=== PATIENT | male | born 1945 | race Caucasian/White ===

== ENCOUNTER 2017-08-30 15:06 | Inpatient (IN) ==
--- NOTE | 2017-08-30 15:44 | Emergency Department Note ---
Disposition Clinical Impression: PAD (peripheral artery disease) DVT (deep venous thrombosis) Qualifiers: DVT location: lower extremity Affected thrombotic vein of extremity: femoral Chronicity: acute Laterality: left Qualified Code(s): I82.412 - Acute embolism and thrombosis of left femoral vein Disposition: Admitted As Inpatient Condition: Good Time of Disposition: 00:55 General Adult HPI - General Chief complaint: ED General Medical Stated complaint: DVT Time Seen by Provider: 08/30/17 15:17 Source: patient Limitations: no limitations Nursing Notes Reviewed: Yes Vital Signs Reviewed: Yes - History of Present Illness HPI Narrative: Mr. Cuello, 72-year-old male, reasons from the [place] by EMS for evaluation of lack of left posterior tibial and dorsalis pedis pulses and [facility]. Patient's daughter is a PA at urgent care and noted that her father 's left ankle and foot were more swollen versus right and recommended he seek evaluation at the [facility]. He has no pain in his lower extremities and his only complaint is the visible difference with slight swelling in the left ankle and foot versus right. He otherwise has had no trauma, no breaks in skin, no claudication, no history of coagulopathy, no cancer history, no recent surgeries. Patient takes no daily medications and has a prior [id number] history of smoking. Pain Scale: 2 - Related Data Home Medications Medication Instructions Recorded Confirmed No Known Home Drugs 08/30/17 08/30/17 Allergies Allergy/AdvReac Type Severity Reaction Status Date / Time No Known Allergies Allergy Verified 08/30/17 15:23 All systems ED: reviewed and negative except as stated. Review of Systems: As Per HPI Past Medical History - Past Medical History Medical history: Reports: other Psychiatric history: Reports: anxiety, depression, PTSD - Social History Smoking Status: Current every day smoker Smokeless Tobacco Status: No Alcohol use: Reports: heavy Drug use: Reports: none Physical Exam Vital Signs Reviewed General: Patient is alert, oriented, and in no acute distress. Head: atraumatic, normocephalic Eye: normal appearance, PERRL, EOMI, no scleral icterus, no conjunctival injection ENT: mucous membranes moist, normal external ear exam Neck: normal inspection, trachea midline, full ROM Chest: normal inspection, symmetric chest rise Respiratory: Good respiratory effort. Bilateral breath sounds are clear without wheezing, crackles, or rhonchi. Cardiovascular: Regular rate and rhythm. No clicks, rubs, gallops, or murmors. Normal heart sounds. Left posterior tibial and her cells pedis pulses nonpalpable, overlying skin cool and mottled, no cyanosis. Prolonged capillary refill in the bilateral toes of 5-6 seconds. Abdomen: Bowel sounds present normoactive x-4 quadrants. Abdomen is soft, nondistended, and nontender. No guarding or rebound. No organomegaly noted. Musculoskeletal: Spontaneously moving all extremities. Lower extremity strength 5/5 and equal. Skin: dry, intact. Neuro: Alert and oriented x4. Sensation light touch intact in lower extremity is bilaterally Psych: Patient's affect is appropriate for situation. - General Limitations: no limitations General appearance: alert Course Course Narrative: [facility] impression: "There is evidence of acute appearing deep venous thrombosis in the left lower extremity involving the proximal, mid, and distal femoral vein, popliteal vein, and posterior tibial veins." Preliminary arterial duplex: Arterial Duplex; Left Arterial image noted flow distally. Flow did appear mildly diminished and some areas of plaque were noted. NATALIE unable to be performed due to presence of venous thrombus, a contraindication for an NATALIE. I discussed the above in detail with the patient. We discussed the treatment strategy of his DVT being an anticoagulant. We discussed risk and benefits. He is agreeable to beginning IV heparin as a bridge to oral therapy with which she may be discharged home. He is agreeable to admission for continued evaluation and management. He has no additional questions or concerns this time. I discussed the patient with the admitting hospitalist, Dr. Hays, who agrees to accept the patient for continued evaluation and management. Vital Signs Temperature 97.8 F 08/30/17 15:08 Pulse Rate 101 08/30/17 15:08 Respiratory Rate 18 08/30/17 15:08 Blood Pressure 159/76 08/30/17 15:08 O2 Sat by Pulse Oximetry 98 08/30/17 15:08 Temperature 98.3 F 08/30/17 23:26 Pulse Rate 62 08/30/17 23:26 Respiratory Rate 15 08/30/17 23:26 Blood Pressure 133/73 08/30/17 23:26 O2 Sat by Pulse Oximetry 94 08/30/17 23:26 Oxygen Delivery Oxygen Delivery Room Air Medical Decision Making - Lab Data Result diagrams: 08/30/17 18:04 08/30/17 18:04 Lab Results 08/30/17 08/30/17 08/30/17 Range/Units 18:04 18:04 18:04 WBC 5.0 TNP (4.3-11.1) K/mcL RBC 4.92 TNP (4.19-5.50) M/mcL Hgb 15.5 TNP (12.9-16.9) g/dL Hct 46.1 TNP (37.5-50.1) % MCV 93.7 TNP (83.0-100.0) fL MCH 31.5 TNP (28.0-33.3) pg MCHC 33.6 TNP (31.6-35.5) g/dL RDW 12.7 TNP (11.5-14.5) % Plt Count 170 TNP (140-400) K/mcL MPV 10.5 TNP (9.4-12.4) fL Immature Gran % 0.2 (0-4) % Seg Neutrophils % 40.6 % Lymphocytes % 37.4 % Monocytes % 14.8 % Eosinophils % 6.0 % Basophils % 1.0 % Neutrophils # 2.0 (1.6-8.9) K/mcL Lymphocytes # 1.9 (0.6-4.6) K/mcL Monocytes # 0.7 (0.0-1.3) K/mcL Eosinophils # 0.3 (0.0-0.6) K/mcL Basophils # 0.1 (0.0-0.2) K/mcL PT (9.4-12.1) Seconds INR APTT (26.0-36.0) Seconds Sodium 140 (136-145) mEq/L Potassium 4.0 (3.5-5.1) mEq/L Chloride 105 (98-107) mEq/L Carbon Dioxide 28 (23-29) mEq/L BUN 9 (8-23) mg/dL Creatinine 0.83 (0.70-1.30) mg/dL Est GFR ( Amer) > 60 (> 60) Est GFR (Non-Af Amer) > 60 (> 60) BUN/Creatinine Ratio 11 (6-26) Glucose 89 (70-105) mg/dL Calculated Osmolality 288 (280-300) Calcium 9.3 (8.6-10.3) mg/dL 08/30/17 Range/Units 18:04 WBC (4.3-11.1) K/mcL RBC (4.19-5.50) M/mcL Hgb (12.9-16.9) g/dL Hct (37.5-50.1) % MCV (83.0-100.0) fL MCH (28.0-33.3) pg MCHC (31.6-35.5) g/dL RDW (11.5-14.5) % Plt Count (140-400) K/mcL MPV (9.4-12.4) fL Immature Gran % (0-4) % Seg Neutrophils % % Lymphocytes % % Monocytes % % Eosinophils % % Basophils % % Neutrophils # (1.6-8.9) K/mcL Lymphocytes # (0.6-4.6) K/mcL Monocytes # (0.0-1.3) K/mcL Eosinophils # (0.0-0.6) K/mcL Basophils # (0.0-0.2) K/mcL PT 12.1 (9.4-12.1) Seconds INR 1.1 APTT 26.6 (26.0-36.0) Seconds Sodium (136-145) mEq/L Potassium (3.5-5.1) mEq/L Chloride (98-107) mEq/L Carbon Dioxide (23-29) mEq/L BUN (8-23) mg/dL Creatinine (0.70-1.30) mg/dL Est GFR ( Amer) (> 60) Est GFR (Non-Af Amer) (> 60) BUN/Creatinine Ratio (6-26) Glucose (70-105) mg/dL Calculated Osmolality (280-300) Calcium (8.6-10.3) mg/dL Attestation Statement - Attestation Attestation: I examined this patient and my medical decision-making was reviewed with the Resident Physician. I agree with the documented findings, disposition and treatment plan as described except to the extent set forth below. DVt. Will admit after initiation of heparin. Patient will be admitted due to, getting factors of decrease arterial flow due to suspected compressive forces from underlying DVT.
[2017-08-30] MEDS ORDERED: Isovue-370 500 ML INFUS..BTL IV ONE (17:47)
[2017-08-30] MEDS ORDERED: *HR* Heparin 5,000 UNIT/ML VIAL IVP PRN ×2 (17:48)
[2017-08-30] MEDS ORDERED: *HR* Heparin 5,000 UNIT/ML VIAL IVP ONE (17:48)
[2017-08-30 18:23] LABS: Basophils # 0.1 K/mcL (0.0-0.2); Eosinophils # 0.3 K/mcL (0.0-0.6); Hematocrit 46.1 % (37.5-50.1); Hemoglobin 15.5 g/dL (12.9-16.9); Immature Granulocytes % 0.2 % (0-4); Lymphocytes # 1.9 K/mcL (0.6-4.6); Lymphocytes % 37.4 %; Mean Corpuscular HGB Conc 33.6 g/dL (31.6-35.5); Mean Corpuscular Hemoglobin 31.5 pg (28.0-33.3); Mean Corpuscular Volume 93.7 fL (83.0-100.0); Mean Platelet Volume 10.5 fL (9.4-12.4); Monocytes # 0.7 K/mcL (0.0-1.3); Monocytes % 14.8 %; Platelet Count 170 K/mcL (140-400); Red Blood Count 4.92 M/mcL (4.19-5.50); Red Cell Distribution Width 12.7 % (11.5-14.5); Segmented Neutrophils % 40.6 %
[2017-08-30 18:37] LABS: INR 1.1; Prothrombin Time 12.1 Seconds (9.4-12.1)
[2017-08-30 18:40] LABS: Activated Partial Thrombo Time 26.6 Seconds (26.0-36.0)
[2017-08-30 18:42] LABS: BUN/Creatinine Ratio 11 (6-26); Blood Urea Nitrogen 9 mg/dL (8-23); Calcium 9.3 mg/dL (8.6-10.3); Carbon Dioxide 28 mEq/L (23-29); Chloride 105 mEq/L (98-107); Glucose 89 mg/dL (70-105); Osmolality,Calculated 288 (280-300); Sodium 140 mEq/L (136-145); eGFR For African Americans > 60 (> 60); eGFR For Non-African Americans > 60 (> 60)
[2017-08-30] MEDS ORDERED: Naloxone 0.4 MG/ML INJ IVP PRN (21:51)
--- NOTE | 2017-08-30 22:02 | Internal Med History&Physical ---
Date of Encounter: 08/30/17 Time of Encounter: 21:59 Internal Medicine - H&P: HPI Chief complaint: Left sided above knee DVT Admitted From: Emergency Dept Plans for Post Hospital Care: Home History of present illness: Mr. Cuello is a 72 year old male who has no background medical history. Patient was sent from [place] to his emergency room and patient underwent ultrasound examination of the venous system of the lower extremity and it was found that patient has a left lower extremity deep vein thrombosis which is above the patient's knee joint. Patient was evaluated in the [place] and noted that he had a swelling of his left lower extremity. Patient was evaluated by [place] for department and noted that patient has a left deep vein thrombosis which extends from calf muscle all the way above the knee joint. For this reason patient was transferred to this hospital for further evaluation. Workup in the emergency room: patient was evaluated in the emergency room. CTA chest was done. CTA was negative for acute pulmonary embolism. Patient was started on heparin drip. Reason for admission: Acute left lower extremity deep vein thrombosis extending all the way above knee joint. Past Med Surg Social Fam HX - Past Medical History Medical history: other Psychiatric history: anxiety, depression, PTSD - Social History Smoking Status: Current every day smoker Smokeless Tobacco Status: No Alcohol use: heavy Drug use: none - Family History Mother Living Status: Cause of : heart disease Hx Family Cardiac Disorders: Yes Internal Medicine - H&P: Meds No Known Home Drugs 08/30/17 [History] 3 Allergy/AdvReac Type Severity Reaction Status Date / Time No Known Allergies Allergy Verified 08/30/17 15:23 All Systems PM: A 10-system review of systems was performed and is negative for pertinent findings except as documented above in the HPI. - Constitutional Constitutional: no chills, no fever(s), no night sweats Additional comments: Swelling of the left lower extremity. - EENT Eyes: no change in vision, no discharge, no pain, no photophobia Ears: no ear discharge, no ear pain, no tinnitus Nose, mouth and throat: no dysphagia, no nasal discharge, no neck pain, no sore throat - Cardiovascular Cardiovascular ROS IM: no chest pain, no diaphoresis, no dyspnea, no lightheadedness, no palpitations, no syncope - Respiratory Respiratory: no cough, no dyspnea, no wheezing, no excessive phlegm production - Gastrointestinal Gastrointestinal: no abdominal pain, no diarrhea, no hematemesis, no hematochezia, no melena, no nausea, no vomiting - Musculoskeletal Musculoskeletal ROS IM: no numbness, no tingling - Integumentary Integumentary IM: no rash, no unusual bruising - Neurological Neurological ROS: no confusion, no convulsions, no focal weakness, no numbness, no tingling, no tremor(s) - Hematologic/Lymphatic Hematologic/Lymphatic: no easy bruising - Constitutional Vitals: Temp Pulse Resp BP Pulse Ox 97.0 F L 70 15 160/84 95 08/30/17 20:07 08/30/17 20:07 08/30/17 20:07 08/30/17 20:07 08/30/17 20:07 General appearance: Present: A&O X 3, pleasant, no acute distress, answers questions appropriately - Head Head exam: Present: atraumatic, normocephalic - Eye Eye exam: Present: PERRL, conjuntiva pink, sclera anicteric Pupils: Present: PERRL - Neck Neck exam general surgery: Present: supple, trachea midline. Absent: lymphadenopathy - Respiratory Respiratory exam: Present: CTAB. Absent: accessory muscle use, rales, rhonchi, wheezes - Cardiovascular Cardiovascular exam: Present: RRR, +S1, +S2. Absent: diastolic murmur, gallop, rubs, systolic murmur - GI/Abdominal GI/Abdominal exam: Present: normal bowel sounds, soft, no peritoneal signs. Absent: distended, tenderness - Extremities Exam Extremities exam: Present: warm, radial pulses palpable and symmetrical. Absent : calf tenderness, cyanotic, pedal edema - Neurological Exam Neurological exam: Present: CN II-XII intact, oriented X3, no focal deficits. Absent: pronater drift, facial droop, speech deficit - Skin Skin exam: Present: dry, intact Internal Med - H&P Results - Labs CBC & Chem 7: 08/30/17 18:04 08/30/17 18:04 - Assessment and plan (1) Acute deep vein thrombosis (DVT) of left lower extremity Current Visit: Yes Status: Acute Assessment and plan: Patient is a left lower extremity deep vein thrombosis. 8 accidents from a cough muscle all the way above the urine. Patient underwent CTA chest. It is negative for acute pulmonary embolism. Plan: Admit as inpatient. Cardiac diet. IV heparin. Social work consult: Patient needs long-term anticoagulation. Patient may need further workup in terms of CT abdomen/chest: To rule out underlying malignancy. Plan of care discussed with the patient and his . They verbalize understanding. Qualifiers: Affected thrombotic vein of extremity: other lower extremity vein Qualified Code(s): I82.492 - Acute embolism and thrombosis of other specified deep vein of left lower extremity (2) DVT prophylaxis Current Visit: Yes Status: Acute Assessment and plan: [facility] making: This patient has a moderate to severe risk of worsening in spite of being on appropriate medication due to the underlying age and risk factor. - Time Spent With Patient Total time spent is greater than 50% in coordination of care (as documented) at patient's floor/unit and/or counseling patient:
[2017-08-30] MEDS: Heparin 25,000 UNIT/500 ML D5W 25,000 UNIT/500 ML BAG IVC SCH (22:46)
[2017-08-31 05:20] LABS: Basophils # 0.1 K/mcL (0.0-0.2); Basophils % 1.2 %; Eosinophils # 0.3 K/mcL (0.0-0.6); Eosinophils % 6.6 %; Hematocrit 43.3 % (37.5-50.1); Hemoglobin 14.6 g/dL (12.9-16.9); Immature Granulocytes % 0.4 % (0-4); Lymphocytes # 1.6 K/mcL (0.6-4.6); Lymphocytes % 32.7 %; Mean Corpuscular HGB Conc 33.7 g/dL (31.6-35.5); Mean Corpuscular Hemoglobin 31.4 pg (28.0-33.3); Mean Corpuscular Volume 93.1 fL (83.0-100.0); Mean Platelet Volume 11.2 fL (9.4-12.4); Monocytes # 0.7 K/mcL (0.0-1.3); Monocytes % 13.2 %; Neutrophils # 2.3 K/mcL (1.6-8.9); Platelet Count 157 K/mcL (140-400); Red Blood Count 4.65 M/mcL (4.19-5.50); Red Cell Distribution Width 12.9 % (11.5-14.5); Segmented Neutrophils % 45.9 %
[2017-08-31 05:39] LABS: Troponin I < 0.03 ng/mL (< 0.04)
[2017-08-31 05:40] LABS: Alanine Aminotransferase 12 Units/L (7-52); Albumin 3.6 g/dL (3.5-5.7); Albumin/Globulin Ratio 1.6 (1.1-2.2); Alkaline Phosphatase 72 Units/L (34-104); Aspartate Amino Transferase 17 Units/L (13-39); BUN/Creatinine Ratio 14 (6-26); Bilirubin,Total 0.5 mg/dL (0.3-1.0); Blood Urea Nitrogen 12 mg/dL (8-23); Calcium 8.9 mg/dL (8.6-10.3); Carbon Dioxide 26 mEq/L (23-29); Chloride 108 mEq/L (98-107); Chol/HDL Ratio 3.6 (0-4.9); Cholesterol 157 mg/dL (< 200); Globulin 2.2 g/dL (2.4-3.5); Glucose 98 mg/dL (70-105); HDL Cholesterol 44 mg/dL (40-59); LDL Cholesterol,Calculated 83 mg/dL (0-99); Magnesium 2.1 mg/dL (1.6-2.6); Osmolality,Calculated 290 (280-300); Phosphorous 4.1 mg/dL (2.7-4.5); Potassium 3.9 mEq/L (3.5-5.1); Sodium 140 mEq/L (136-145); Total Protein 5.8 g/dL (6.4-8.9); Triglycerides 148 mg/dL (< 150); eGFR For African Americans > 60 (> 60); eGFR For Non-African Americans > 60 (> 60)
[2017-08-31 05:42] LABS: Activated Partial Thrombo Time 128.5 Seconds (26.0-36.0)
[2017-08-31 05:46] LABS: Heparin anti-factor XA UFH 0.69 IU/mL (0.30-0.70)
--- NOTE | 2017-08-31 11:30 | Internal Med Progress Note ---
Date of Encounter: 08/31/17 Time of Encounter: 11:27 - Assessment and plan (1) Acute deep vein thrombosis (DVT) of left lower extremity Current Visit: Yes Status: Acute Assessment and plan: left lower extremity deep vein thrombosis. 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 IV heparin. The patient was given the option to start a new anticoagulated like xarelto versus Coumadin, risk of bleeding has been explained, he has chosen to be started on Coumadin and to be on Lovenox at discharge Start Coumadin 5 mg tonight, he had a history of a gastric ulcer 25 years ago next Start omeprazole Qualifiers: Affected thrombotic vein of extremity: other lower extremity vein Qualified Code(s): I82.492 - Acute embolism and thrombosis of other specified deep vein of left lower extremity (2) PTSD (post-traumatic stress disorder) Current Visit: Yes Status: Acute (3) Depression Current Visit: Yes Status: Acute Assessment and plan: Stable Qualifiers: Depression Type: unspecified Qualified Code(s): F32.9 - Major depressive disorder, single episode, unspecified (4) Tobacco abuse Current Visit: Yes Status: Acute Assessment and plan: Smoking cessation counseling, nicotine patch - Time Spent With Patient Total time spent is greater than 50% in coordination of care (as documented) at patient's floor/unit and/or counseling patient: - Subjective Interval history: Left lower extremity edema has improved, pain has improved, denies any shortness of breath or chest pain, no abdominal pain or dysuria, no fevers or chills - Constitutional Vitals: Temp Pulse Resp BP Pulse Ox 98.3 F 68 16 134/81 95 08/31/17 06:50 08/31/17 06:50 08/31/17 06:50 08/31/17 06:50 08/31/17 06:50 General appearance: Present: A&O X 3, pleasant, no acute distress, answers questions appropriately - Head Head exam: Present: atraumatic, normocephalic - Eye Eye exam: Present: PERRL, conjuntiva pink, sclera anicteric Pupils: Present: PERRL - Neck Neck exam general surgery: Present: supple, trachea midline. Absent: lymphadenopathy - Respiratory Respiratory exam: Present: CTAB. Absent: accessory muscle use, rales, rhonchi, wheezes - Cardiovascular Cardiovascular exam: Present: RRR, +S1, +S2. Absent: diastolic murmur, gallop, rubs, systolic murmur - GI/Abdominal GI/Abdominal exam: Present: normal bowel sounds, soft, no peritoneal signs. Absent: distended, tenderness - Extremities Exam Extremities exam: Present: pedal edema, warm, radial pulses palpable and symmetrical. Absent: calf tenderness, cyanotic - Neurological Exam Neurological exam: Present: CN II-XII intact, oriented X3, no focal deficits. Absent: pronater drift, facial droop, speech deficit - Skin Skin exam: Present: dry, intact Additional comments: Left lower extremity edema above the knee, improving Internal Medicine: Result - Labs CBC & Chem 7: 08/31/17 04:51 08/31/17 04:51 Labs: Short CBC 08/31/17 Range/Units 04:51 WBC 5.0 (4.3-11.1) K/mcL Hgb 14.6 (12.9-16.9) g/dL Hct 43.3 (37.5-50.1) % Plt Count 157 (140-400) K/mcL Neutrophils # 2.3 (1.6-8.9) K/mcL BMP 08/31/17 04:51 Sodium 140 Potassium 3.9 Chloride 108 H Carbon Dioxide 26 BUN 12 Creatinine 0.88 Glucose 98 Calcium 8.9 Cardiac Enzymes 08/30/17 08/31/17 08/31/17 Range/Units 22:08 04:51 09:56 Troponin I < 0.03 < 0.03 < 0.03 (< 0.04) ng/mL Liver Function 08/31/17 Range/Units 04:51 Total Bilirubin 0.5 (0.3-1.0) mg/dL AST 17 (13-39) Units/L ALT 12 (7-52) Units/L Alkaline Phosphatase 72 (34-104) Units/L Albumin 3.6 (3.5-5.7) g/dL - ABG Interpretation ABG results: PT/INR, D-dimer PT 12.1 Seconds (9.4-12.1) 08/30/17 18:04 Consult Discharge Plan - Plan [facility]errals: [facility] [Primary Care Provider] -
[2017-08-31] MEDS ORDERED: Acetaminophen 325 MG TABLET PO PRN (11:31)
[2017-08-31] MEDS: Nicotine 21 MG PATCH.TD24 TD SCH (13:20)
[2017-08-31] MEDS ORDERED: *HR* Warfarin 5 MG TABLET PO SCH (18:00)
[2017-09-01 02:11] LABS: INR 1.2; Prothrombin Time 12.7 Seconds (9.4-12.1)
[2017-09-01 02:42] LABS: Activated Partial Thrombo Time 79.1 Seconds (26.0-36.0)
[2017-09-01] MEDS: Heparin 25,000 UNIT/500 ML D5W 25,000 UNIT/500 ML BAG IVC SCH (04:01)
[2017-09-01] MEDS: Nicotine 21 MG PATCH.TD24 TD SCH (09:30)
--- NOTE | 2017-09-01 11:16 | Discharge Summary ---
- NOTES TO OUTPATIENT PROVIDER Notes to Outpatient Provider: Follow-up with primary care physician within the next 7 days. Go to the Coumadin clinic on Sunday to check INR. Continue Lovenox until INR is more than 2, continue Coumadin 5 g daily. Elevate limbs Orders not resulted at time of discharge: Pending orders 09/02/17 01:45 PTT [Activated Partial Thrombo Time] [COAG] Timed Date of Encounter: 09/01/17 Time of Encounter: 11:13 - Discharge Diagnosis (1) Acute deep vein thrombosis (DVT) of left lower extremity Priority: Primary Status: Acute Comments: left lower extremity deep vein thrombosis. 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 Cuello is a 72 year old male with no background medical history. Patient was sent from [place] to his emergency room and patient underwent ultrasound examination of the venous system of the lower extremity and it was found that patient has a left lower extremity deep vein thrombosis which is above the patient's knee joint. Patient was evaluated in the [place] and noted that he had a swelling of his left lower extremity. Patient was evaluated by [place] for department and noted that patient has a left deep vein thrombosis which extends from calf muscle all the way above the knee joint. For this reason patient was transferred to this hospital for further evaluation. Workup in the emergency room: patient was evaluated in the emergency room. CTA chest was done. CTA was negative for acute pulmonary embolism. Patient was started on heparin drip. 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 The patient was given the option to start a new anticoagulated like xarelto versus Coumadin, risk of bleeding has been explained, he has chosen to be started on Coumadin and to be on Lovenox at discharge Started Coumadin 5 mg , he had a history of a gastric ulcer 25 years ago , started omeprazole as well. Time spent discussing smoking cessation with patient: 3 to 10 minutes - Time Spent with Patient Total time spent providing and/or coordinating discharge services: Greater than 30 minutes (40 min) - Discharge Medications Prescriptions: Enoxaparin [Lovenox] 75 mg SQ BID #14 syringe Omeprazole [PriLOSEC] 40 mg PO DAILY@0630 #30 capsule. Warfarin [Coumadin] 5 mg PO DAILY@1800 #30 tablet Home Medications: Enoxaparin [Lovenox] 75 mg SQ BID #14 syringe 09/01/17 [Rx] Omeprazole [PriLOSEC] 40 mg PO DAILY@0630 #30 capsule. 09/01/17 [Rx] Warfarin [Coumadin] 5 mg PO DAILY@1800 #30 tablet 09/01/17 [Rx] Allergies/Adverse Reactions: 3 Allergy/AdvReac Type Severity Reaction Status Date / Time No Known Allergies Allergy Verified 08/30/17 15:23 Date of admission: 08/30/17 18:21 Primary care physician: [facility] Consults: 08/30/17 21:58 Consult to Car[employer] Gr[employer] Inspector [CONS] Routine Reason for Consult: need help to for anticoagulation pricing and availability - Constitutional Vitals: Temp Pulse Resp BP Pulse Ox 97.5 F L 69 15 126/78 96 09/01/17 07:54 09/01/17 07:54 09/01/17 07:54 09/01/17 07:54 09/01/17 09:40 General appearance: Present: A&O X 3, pleasant, no acute distress, answers questions appropriately - Head Head exam: Present: atraumatic, normocephalic - Eye Eye exam: Present: PERRL, conjuntiva pink, sclera anicteric Pupils: Present: PERRL - Neck Neck exam general surgery: Present: supple, trachea midline. Absent: lymphadenopathy - Respiratory Respiratory exam: Present: CTAB. Absent: accessory muscle use, rales, rhonchi, wheezes - Cardiovascular Cardiovascular exam: Present: RRR, +S1, +S2. Absent: diastolic murmur, gallop, rubs, systolic murmur - GI/Abdominal GI/Abdominal exam: Present: normal bowel sounds, soft, no peritoneal signs. Absent: distended, tenderness - Extremities Exam Extremities exam: Present: warm, radial pulses palpable and symmetrical. Absent : calf tenderness, cyanotic, pedal edema - Neurological Exam Neurological exam: Present: CN II-XII intact, oriented X3, no focal deficits. Absent: pronater drift, facial droop, speech deficit - Skin Skin exam: Present: dry, intact Additional comments: mild left lower extremity non pitting edema , much improved - Patient Status Disposition: Home, Self-Care Condition: Good Overall status at discharge: patient is progressing back to baseline - Discharge Instructions Follow Up With: [facility] [Primary Care Provider] - Additional Instructions: Follow-up with primary care physician within the next 7 days. Go to the Coumadin clinic on Sunday to check INR. Continue Lovenox until INR is more than 2, continue Coumadin 5 g daily. Elevate limbs - Diet and Activity Diet: low fat, low cholesterol
[2017-09-01] MEDS ORDERED: *HR* Enoxaparin 80 MG/0.8 ML SYRINGE SQ SCH (11:30)
[2017-09-01 12:17] VITALS: BP 145/75
== END 2017-09-01 13:39 | disposition home or self-care (01) | DRG 301 ==
LOC: EMEROO 15:06 → 3NENU 18:21
PROVIDERS: ADMIT Internal Medicine; ATTEND Internal Medicine

== ENCOUNTER 2020-03-09 09:14 | Inpatient (IN) ==
[2020-03-09] MEDS: 0.9 % Sodium Chloride 1,000 ML IVC SCH (10:03)
[2020-03-09] MEDS ORDERED: Nitroglycerin 1,000 MCG/10 ML VIAL IV ONE (11:20)
[2020-03-09] MEDS ORDERED: Heparin 1,000 UNITS/500 mL 500 ML ONE (11:20)
[2020-03-09] MEDS ORDERED: *HR* Heparin 10,000 UNIT/10 ML VIAL ONE (11:20)
[2020-03-09] MEDS ORDERED: ISOVUE-370 200 ML INFUS..BTL ONE (11:20)
[2020-03-09] MEDS ORDERED: 0.9 % Sodium Chloride 1,000 ML ONE (11:20)
[2020-03-09] MEDS ORDERED: *HR* FentaNYL (PF) 100 MCG/2 ML VIAL ONE (11:36)
[2020-03-09] MEDS ORDERED: *HR* Midazolam HCl 2 MG/2 ML VIAL ONE (11:36)
[2020-03-09] MEDS ORDERED: Nitroglycerin 0.4 MG TAB.SUBL SL PRN (12:09)
[2020-03-09] MEDS ORDERED: Perflutren Lipid Microsphere 1.3 ML in 0.9 % Sodium Chloride 8.7 ML IVP PRN (12:14)
[2020-03-09] MEDS ORDERED: *HR* Heparin 5,000 UNIT/ML VIAL IVP ONE (14:58)
[2020-03-09] MEDS ORDERED: *HR* Heparin 5,000 UNIT/ML VIAL IVP PRN ×2 (14:58)
[2020-03-09] MEDS: Aspirin 81 MG TAB.CHEW PO SCH (16:22)
[2020-03-09] MEDS: Heparin 25,000UNIT/250ML 1/2NS 25,000 UNIT/250 ML IV.SOLN IVC SCH (17:04)
[2020-03-09 17:13] LABS: Estimated Average Glucose 108 mg/dl
[2020-03-09 17:14] LABS: Mean Corpuscular Volume 98.5 fL (83.0-100.0)
[2020-03-09 17:22] LABS: Basophils % 0.7 %; Immature Granulocytes % 0.2 % (0-4)
[2020-03-09 17:24] LABS: Eosinophils % 4.3 %; Lymphocytes # 1.6 K/mcL (0.6-4.6); Lymphocytes % 28.3 %; Monocytes % 16.7 %; Neutrophils # 2.8 K/mcL (1.6-8.9); Segmented Neutrophils % 49.8 %
[2020-03-09 17:25] LABS: Heparin anti-factor XA UFH 0.09 IU/mL (0.30-0.70); INR 1.3; Prothrombin Time 14.4 Seconds (9.4-12.1)
[2020-03-09 17:27] LABS: BUN/Creatinine Ratio 14 (6-26); Blood Urea Nitrogen 12 mg/dL (8-23); Calcium 8.8 mg/dL (8.6-10.3); Carbon Dioxide 29 mEq/L (23-29); Chloride 107 mEq/L (98-107); Cholesterol 115 mg/dL (< 200); Glucose 113 mg/dL (70-105); HDL Cholesterol 38 mg/dL (40-59); LDL Cholesterol,Calculated 26 mg/dL (< 100); Osmolality,Calculated 289 (280-300); Sodium 139 mEq/L (136-145); Triglycerides 257 mg/dL (< 150); eGFR For African Americans > 60 (> 60); eGFR For Non-African Americans > 60 (> 60)
[2020-03-09 17:29] LABS: Eosinophils # 0.3 K/mcL (0.0-0.6)
[2020-03-09 17:30] LABS: Hemoglobin 14.2 g/dL (12.9-16.9); Mean Corpuscular HGB Conc 31.6 g/dL (31.6-35.5); Mean Corpuscular Hemoglobin 31.1 pg (28.0-33.3); Mean Platelet Volume 11.5 fL (9.4-12.4); Platelet Count 128 K/mcL (140-400); Red Blood Count 4.57 M/mcL (4.19-5.50); Red Cell Distribution Width 12.6 % (11.5-14.5); White Blood Count 5.7 K/mcL (4.3-11.1)
[2020-03-09] MEDS: Chlorhexidine Rinse 15 ML MOUTHWASH MM SCH (20:19)
[2020-03-10] MEDS: 0.9 % Sodium Chloride 1,000 ML IVC SCH (05:59)
[2020-03-10] MEDS ORDERED: CeFAZolin Syr 2,000MG/20 ML 2,000 MG/20 ML SYRINGE IVPB ONE (07:00)
[2020-03-10] MEDS: Chlorhexidine Rinse 15 ML MOUTHWASH MM SCH (08:22)
[2020-03-10] MEDS: Metoprolol XL (24 HR) Succ 50 MG TAB.ER.24H PO SCH (08:23)
[2020-03-10] MEDS: Isosorbide MONOnitrate (24 HR) 30 MG TAB.ER.24H PO SCH (08:23)
[2020-03-10] MEDS: Aspirin 81 MG TAB.CHEW PO SCH (08:23)
[2020-03-10] MEDS: Heparin 25,000UNIT/250ML 1/2NS 25,000 UNIT/250 ML IV.SOLN IVC SCH (23:43)
[2020-03-11 01:32] LABS: Immature Granulocytes % 0.2 % (0-4); Lymphocytes % 32.7 %; Mean Platelet Volume 11.5 fL (9.4-12.4)
[2020-03-11 01:33] LABS: Basophils # 0.1 K/mcL (0.0-0.2); Basophils % 0.8 %; Eosinophils # 0.4 K/mcL (0.0-0.6); Eosinophils % 6.8 %; Hematocrit 43.9 % (37.5-50.1); Hemoglobin 14.1 g/dL (12.9-16.9); Immature Platelets 8.4 % (1.1-6.1); Lymphocytes # 2.1 K/mcL (0.6-4.6); Mean Corpuscular HGB Conc 32.1 g/dL (31.6-35.5); Mean Corpuscular Hemoglobin 31.4 pg (28.0-33.3); Mean Corpuscular Volume 97.8 fL (83.0-100.0); Monocytes # 0.9 K/mcL (0.0-1.3); Monocytes % 13.5 %; Platelet Count 134 K/mcL (140-400); Red Blood Count 4.49 M/mcL (4.19-5.50); Red Cell Distribution Width 12.7 % (11.5-14.5); White Blood Count 6.5 K/mcL (4.3-11.1)
[2020-03-11] MEDS: 0.9 % Sodium Chloride 1,000 ML IVC SCH ×3 (01:43→19:19)
[2020-03-11 01:48] LABS: BUN/Creatinine Ratio 12 (6-26); Blood Urea Nitrogen 12 mg/dL (8-23); Calcium 8.9 mg/dL (8.6-10.3); Carbon Dioxide 27 mEq/L (23-29); Chloride 109 mEq/L (98-107); Glucose 92 mg/dL (70-105); Osmolality,Calculated 287 (280-300); Potassium 3.9 mEq/L (3.5-5.1); Sodium 139 mEq/L (136-145); eGFR For African Americans > 60 (> 60); eGFR For Non-African Americans > 60 (> 60)
[2020-03-11] MEDS ORDERED: NiCARdipine 2.5 MG/10 ML Syringe IVPB ONE (06:15)
[2020-03-11] MEDS ORDERED: *HR* Midazolam HCl 5 MG/5 ML VIAL IVP ONE (06:22)
[2020-03-11] MEDS ORDERED: *HR* FentaNYL (PF) 1,000 MCG/20 ML VIAL ONE (06:22)
[2020-03-11] MEDS ORDERED: *HR* PHENYLEPHRINE 1,000 MCG/10 ML SYRINGE IVP ONE (06:23)
[2020-03-11] MEDS ORDERED: *HR* Rocuronium Bromide 50 MG/5 ML VIAL ONE ×2 (06:23→11:08)
[2020-03-11] MEDS ORDERED: *HR* Etomidate 20 MG/10 ML AMPUL IVP ONE (06:24)
[2020-03-11] MEDS ORDERED: Famotidine 20 MG/2 ML VIAL ONE (06:24)
[2020-03-11] MEDS ORDERED: Tranexamic Acid 1,000 MG/10 ML VIAL ONE (06:26)
[2020-03-11] MEDS ORDERED: Protamine Sulfate 250 MG/25 ML VIAL IVP ONE (06:26)
[2020-03-11] MEDS ORDERED: Calcium Gluconate 1,000 MG/10 ML VIAL ONE (06:26)
[2020-03-11] MEDS ORDERED: Chlorhexidine Rinse 15 ML MOUTHWASH MM ONE (06:29)
[2020-03-11] MEDS ORDERED: Papaverine 60 MG/2 ML VIAL IVP ONE (06:33)
[2020-03-11] MEDS: CeFAZolin Syr 2,000MG/20 ML 2,000 MG/20 ML SYRINGE IVPB ONE ×2 (07:10→08:55)
[2020-03-11] MEDS ORDERED: Albumin 25% 25gram/100mL 100 GM/400 ML IV.SOLN ONE (07:36)
[2020-03-11] MEDS: Heparin 25,000UNIT/250ML 1/2NS 25,000 UNIT/250 ML IV.SOLN IVC SCH (07:59)
[2020-03-11] MEDS: Metoprolol XL (24 HR) Succ 50 MG TAB.ER.24H PO SCH (07:59)
[2020-03-11] MEDS: Isosorbide MONOnitrate (24 HR) 30 MG TAB.ER.24H PO SCH (07:59)
[2020-03-11] MEDS: Aspirin 81 MG TAB.CHEW PO SCH (07:59)
[2020-03-11] MEDS ORDERED: Heparin 15,000 UNIT in 0.9 % Sodium Chloride 500 ML IV ONE (08:15)
[2020-03-11] MEDS ORDERED: Norepinephrine 4 MG in 0.9 % Sodium Chloride 250 ML IVC PRN (08:15)
[2020-03-11] MEDS ORDERED: Dextrose 50 % in Water (Vial) 30 ML, Sodium Bicarbonate 20 MEQ, Lidocaine 1% 5 ML, Insu... TH ONE ×3 (08:15)
[2020-03-11] MEDS ORDERED: Insulin Human Regular 100 UNIT in 0.9 % Sodium Chloride 100 ML IV PRN (08:15)
[2020-03-11] MEDS ORDERED: Dextrose 50 % in Water (Vial) 30 ML, Sodium Bicarbonate 20 MEQ, Potassium Chloride 15 M... TH ONE (08:15)
[2020-03-11 08:41] LABS: ABG Base Excess -1 mEq/L (-2 to 3); ABG Chloride 108 mEq/L (98-107); ABG Glucose 101 mg/dL (60-95); ABG HCO3 25 mEq/L (21-27); ABG Ionized Calcium 1.24 mmol/L (1.15-1.35); ABG Oxygen Saturation 100 % (95-98); ABG PCO2 45 mmHg (35-45); ABG PH 7.36 pH Units (7.32-7.45); ABG PO2 318 mmHg (85-104); ABG TCO2 27 mEq/L (20-26)
[2020-03-11 10:18] LABS: ABG Base Excess -1 mEq/L (-2 to 3); ABG Chloride 107 mEq/L (98-107); ABG Glucose 107 mg/dL (60-95); ABG HCO3 24 mEq/L (21-27); ABG Ionized Calcium 1.18 mmol/L (1.15-1.35); ABG Oxygen Saturation 100 % (95-98); ABG PCO2 42 mmHg (35-45); ABG PH 7.37 pH Units (7.32-7.45); ABG PO2 222 mmHg (85-104); ABG TCO2 26 mEq/L (20-26)
[2020-03-11 10:29] LABS: ABG Base Excess 0 mEq/L (-2 to 3); ABG Chloride 101 mEq/L (98-107); ABG Glucose 170 mg/dL (60-95); ABG HCO3 24 mEq/L (21-27); ABG Ionized Calcium 0.99 mmol/L (1.15-1.35); ABG PCO2 34 mmHg (35-45); ABG PH 7.45 pH Units (7.32-7.45); ABG PO2 > 630 mmHg (85-104); ABG TCO2 25 mEq/L (20-26)
[2020-03-11 11:09] LABS: ABG Base Excess 3 mEq/L (-2 to 3); ABG Chloride 101 mEq/L (98-107); ABG Glucose 180 mg/dL (60-95); ABG HCO3 26 mEq/L (21-27); ABG Ionized Calcium 1.03 mmol/L (1.15-1.35); ABG PCO2 32 mmHg (35-45); ABG PH 7.51 pH Units (7.32-7.45); ABG PO2 > 630 mmHg (85-104); ABG TCO2 27 mEq/L (20-26)
[2020-03-11 11:36] LABS: ABG Base Excess 1 mEq/L (-2 to 3); ABG Chloride 103 mEq/L (98-107); ABG Glucose 109 mg/dL (60-95); ABG HCO3 25 mEq/L (21-27); ABG Oxygen Saturation 100 % (95-98); ABG PCO2 36 mmHg (35-45); ABG PH 7.45 pH Units (7.32-7.45); ABG PO2 614 mmHg (85-104); ABG TCO2 26 mEq/L (20-26)
[2020-03-11 12:02] LABS: ABG Base Excess 2 mEq/L (-2 to 3); ABG Chloride 103 mEq/L (98-107); ABG Glucose 79 mg/dL (60-95); ABG HCO3 25 mEq/L (21-27); ABG Oxygen Saturation 100 % (95-98); ABG PCO2 34 mmHg (35-45); ABG PH 7.48 pH Units (7.32-7.45); ABG PO2 592 mmHg (85-104); ABG TCO2 26 mEq/L (20-26)
[2020-03-11] MEDS ORDERED: EPINEPHrine 1 MG/ML VIAL ONE (12:26)
[2020-03-11 12:36] LABS: ABG Base Excess 1 mEq/L (-2 to 3); ABG Chloride 103 mEq/L (98-107); ABG Glucose 67 mg/dL (60-95); ABG HCO3 26 mEq/L (21-27); ABG Ionized Calcium 1.49 mmol/L (1.15-1.35); ABG Oxygen Saturation 100 % (95-98); ABG PCO2 42 mmHg (35-45); ABG PO2 196 mmHg (85-104); ABG TCO2 27 mEq/L (20-26)
[2020-03-11] MEDS ORDERED: Insulin Regular, Human 100 UNIT/ML IV PRN (12:58)
[2020-03-11] MEDS ORDERED: Potassium Chloride 40 MEQ/200 ML BAG IVPB PRN (12:58)
[2020-03-11] MEDS ORDERED: Naloxone 0.4 MG/ML INJ IVP PRN (12:58)
[2020-03-11] MEDS ORDERED: Acetaminophen 325 MG TABLET PO PRN (12:58)
[2020-03-11] MEDS ORDERED: Albumin Human 5% 12.5 GM/250 ML IV.SOLN IVPB PRN (12:58)
[2020-03-11] MEDS ORDERED: Ondansetron 4 MG/2 ML VIAL IVP PRN (12:58)
[2020-03-11] MEDS ORDERED: *HR* OxyCODONE/APAP 5/325 TABLET PO PRN (12:58)
[2020-03-11] MEDS ORDERED: *HR* Dextrose 50 % in Water (Vial) 50 ML VIAL IVP PRN (12:58)
[2020-03-11] MEDS ORDERED: *HR* Promethazine 25 MG/ML VIAL IM PRN (12:58)
[2020-03-11] MEDS ORDERED: Norepinephrine 4 MG/254 ML IV.SOLN IVC SCH (13:00)
[2020-03-11] MEDS ORDERED: *HR* Dextrose 50 % in Water (Vial) 50 ML VIAL ONE (13:23)
[2020-03-11 13:48] LABS: Basophils % 0.3 %; Immature Granulocytes % 0.4 % (0-4); Red Blood Count 4.27 M/mcL (4.19-5.50); Red Cell Distribution Width 13.6 % (11.5-14.5); Segmented Neutrophils % 73.4 %
[2020-03-11] MEDS ORDERED: Albumin Human 25% 25 GM/100 ML IV.SOLN IVPB ONE (13:48)
[2020-03-11] MEDS ORDERED: Lidocaine 2% Syringe 100 MG/5 ML IVP ONE (13:48)
[2020-03-11] MEDS ORDERED: *HR* Heparin 10,000 UNIT/10 ML VIAL IR ONE (13:48)
[2020-03-11] MEDS ORDERED: *HR* Magnesium Sulfate 2 GM/50 ML PIGGYBACK IVPB ONE (13:48)
[2020-03-11] MEDS ORDERED: Mannitol 25% vial 12.5 GM/50 ML VIAL IVPB ONE (13:48)
[2020-03-11] MEDS ORDERED: Tranexamic Acid 1,000 MG/10 ML VIAL IR ONE (13:48)
[2020-03-11] MEDS ORDERED: *HR* Phenylephrine 10 MG/ML VIAL IVC ONE (13:48)
[2020-03-11 13:50] LABS: Eosinophils # 0.2 K/mcL (0.0-0.6); Eosinophils % 2.5 %; Hemoglobin 13.1 g/dL (12.9-16.9); Lymphocytes % 18.3 %; Mean Corpuscular HGB Conc 32.8 g/dL (31.6-35.5); Mean Corpuscular Hemoglobin 30.7 pg (28.0-33.3); Mean Corpuscular Volume 93.7 fL (83.0-100.0); Mean Platelet Volume 10.3 fL (9.4-12.4); Monocytes # 0.4 K/mcL (0.0-1.3); Monocytes % 5.1 %; White Blood Count 6.8 K/mcL (4.3-11.1)
[2020-03-11 13:55] LABS: INR 1.7
[2020-03-11 13:58] LABS: Activated Partial Thrombo Time 31.3 Seconds (26.0-36.0)
[2020-03-11 14:00] LABS: Prothrombin Time 19.2 Seconds (9.4-12.1)
[2020-03-11 14:02] LABS: BUN/Creatinine Ratio 11 (6-26); Blood Urea Nitrogen 9 mg/dL (8-23); Calcium 9.1 mg/dL (8.6-10.3); Carbon Dioxide 26 mEq/L (23-29); Chloride 110 mEq/L (98-107); Glucose 153 mg/dL (70-105); Magnesium 2.4 mg/dL (1.6-2.6); Osmolality,Calculated 292 (280-300); Potassium 3.4 mEq/L (3.5-5.1); Sodium 140 mEq/L (136-145); eGFR For African Americans > 60 (> 60); eGFR For Non-African Americans > 60 (> 60)
[2020-03-11 14:07] LABS: Lymphocytes # 1.2 K/mcL (0.6-4.6); Platelet Count 35 K/mcL (140-400)
[2020-03-11] MEDS ORDERED: Insulin Human Regular 100 UNIT in 0.9 % Sodium Chloride 100 ML IVC SCH (14:15)
[2020-03-11 14:16] LABS: ABG Base Excess 0 mEq/L (-2 to 3); ABG HCO3 25 mEq/L (21-27); ABG Oxygen Saturation 100 % (95-98); ABG PCO2 40 mmHg (35-45); ABG PO2 268 mmHg (85-104); ABG TCO2 26 mEq/L (20-26); Blood Gas Modality ASSIST CONTROL; Blood Gas VT 550 cc
[2020-03-11] MEDS: niCARdipine 20 MG/200 ML MLS IVC SCH ×3 (14:29→19:18)
[2020-03-11] MEDS: CeFAZolin 2 GM/120 ML BAG IVPB SCH ×2 (14:58→23:16)
[2020-03-11 17:43] LABS: ABG Base Excess -1 mEq/L (-2 to 3); ABG HCO3 25 mEq/L (21-27); ABG Oxygen Saturation 98 % (95-98); ABG PCO2 44 mmHg (35-45); ABG PH 7.37 pH Units (7.32-7.45); ABG PO2 107 mmHg (85-104); ABG TCO2 27 mEq/L (20-26); Blood Gas Modality ASSIST CONTROL; Blood Gas VT 550 cc
[2020-03-11 20:46] LABS: ABG Base Excess -1 mEq/L (-2 to 3); ABG HCO3 24 mEq/L (21-27); ABG Oxygen Saturation 96 % (95-98); ABG PCO2 40 mmHg (35-45); ABG PH 7.38 pH Units (7.32-7.45); ABG PO2 80 mmHg (85-104); ABG TCO2 25 mEq/L (20-26); Blood Gas Modality CPAP/PS; Blood Gas Pressure Support 5 cm H2O
[2020-03-11] MEDS: *HR* FentaNYL (PF) 100 MCG/2 ML VIAL IVP PRN (20:58)
[2020-03-11] MEDS ORDERED: Chlorhexidine Rinse 15 ML MOUTHWASH MM SCH (21:00)
[2020-03-12 01:09] LABS: ABG Base Excess -1 mEq/L (-2 to 3); ABG HCO3 24 mEq/L (21-27); ABG Oxygen Saturation 96 % (95-98); ABG PCO2 39 mmHg (35-45); ABG PH 7.39 pH Units (7.32-7.45); ABG PO2 80 mmHg (85-104); ABG TCO2 25 mEq/L (20-26)
[2020-03-12] MEDS: niCARdipine 20 MG/200 ML MLS IVC SCH ×2 (03:17→04:55)
[2020-03-12 03:43] LABS: Basophils % 0.3 %; Hematocrit 39.4 % (37.5-50.1); Immature Granulocytes % 0.3 % (0-4); Immature Platelets 8.4 % (1.1-6.1); Lymphocytes # 0.9 K/mcL (0.6-4.6); Lymphocytes % 9.8 %; Mean Corpuscular Hemoglobin 31.5 pg (28.0-33.3); Mean Corpuscular Volume 95.4 fL (83.0-100.0); Mean Platelet Volume 11.8 fL (9.4-12.4); Monocytes # 1.5 K/mcL (0.0-1.3); Monocytes % 16.5 %; Neutrophils # 6.7 K/mcL (1.6-8.9); Red Blood Count 4.13 M/mcL (4.19-5.50); Red Cell Distribution Width 14.2 % (11.5-14.5); Segmented Neutrophils % 73.1 %; White Blood Count 9.1 K/mcL (4.3-11.1)
[2020-03-12 03:45] LABS: Platelet Count 75 K/mcL (140-400)
[2020-03-12 03:59] LABS: BUN/Creatinine Ratio 13 (6-26); Blood Urea Nitrogen 13 mg/dL (8-23); Calcium 8.4 mg/dL (8.6-10.3); Carbon Dioxide 23 mEq/L (23-29); Chloride 108 mEq/L (98-107); Glucose 146 mg/dL (70-105); Osmolality,Calculated 293 (280-300); Potassium 4.7 mEq/L (3.5-5.1); Sodium 140 mEq/L (136-145); eGFR For African Americans > 60 (> 60); eGFR For Non-African Americans > 60 (> 60)
[2020-03-12 04:07] LABS: Platelet Estimate Decreased (Normal)
[2020-03-12] MEDS: *HR* FentaNYL (PF) 100 MCG/2 ML VIAL IVP PRN (04:53)
[2020-03-12] MEDS: 0.9 % Sodium Chloride 1,000 ML IVC SCH (04:54)
[2020-03-12] MEDS ORDERED: Ondansetron 4 MG/2 ML VIAL IVP PRN (08:40)
[2020-03-12] MEDS ORDERED: Naloxone 0.4 MG/ML INJ IVP PRN (08:40)
[2020-03-12] MEDS ORDERED: *HR* Promethazine 25 MG/ML VIAL IM PRN (08:40)
[2020-03-12] MEDS ORDERED: Dextrose Gel 15 GM/37.5 ML TUBE PO PRN ×2 (08:40)
[2020-03-12] MEDS ORDERED: *HR* FentaNYL (PF) 100 MCG/2 ML VIAL IVP PRN (08:40)
[2020-03-12] MEDS ORDERED: D5% in Water 1,000 ML IVC PRN (08:40)
[2020-03-12] MEDS ORDERED: Nitroglycerin 0.4 MG TAB.SUBL SL PRN (08:40)
[2020-03-12] MEDS ORDERED: *HR* Dextrose 50 % in Water (Vial) 50 ML VIAL IVP PRN (08:40)
[2020-03-12] MEDS ORDERED: Apixaban 5 MG TABLET PO SCH (09:00)
[2020-03-12] MEDS ORDERED: Pantoprazole 40 MG VIAL IVP SCH ×2 (09:00)
[2020-03-12] MEDS: Insulin LISPRO 300 UNITS/3 ML VIAL SQ SCH ×3 (10:07→20:47)
[2020-03-12] MEDS: Apixaban 5 MG TABLET PO SCH ×2 (10:14→20:47)
[2020-03-12] MEDS: Aspirin 81 MG TAB.CHEW PO SCH (10:14)
[2020-03-12] MEDS: Chlorhexidine Rinse 15 ML MOUTHWASH MM SCH ×2 (10:14→20:47)
[2020-03-12] MEDS: *HR* OxyCODONE/APAP 5/325 TABLET PO PRN ×3 (10:22→20:56)
[2020-03-12] MEDS ORDERED: 0.9 % Sodium Chloride 500 ML IV ONE (16:38)
[2020-03-12] MEDS ORDERED: *HR* LORazepam 2 MG/ML VIAL IVP PRN (16:57)
[2020-03-12] MEDS ORDERED: Furosemide 20 MG/2 ML VIAL IVP ONE (18:39)
[2020-03-12] MEDS: Beer can PO SCH (20:58)
[2020-03-13] MEDS: Acetaminophen 325 MG TABLET PO PRN ×2 (00:08→08:09)
[2020-03-13 04:03] LABS: Basophils % 0.3 %; Eosinophils % 0.1 %; Monocytes % 19.6 %
[2020-03-13 04:05] LABS: Hemoglobin 12.8 g/dL (12.9-16.9); Immature Granulocytes % 0.4 % (0-4); Immature Platelets 10.7 % (1.1-6.1); Lymphocytes # 1.4 K/mcL (0.6-4.6); Lymphocytes % 13.9 %; Mean Corpuscular Hemoglobin 30.8 pg (28.0-33.3); Mean Corpuscular Volume 96.2 fL (83.0-100.0); Mean Platelet Volume 12.3 fL (9.4-12.4); Neutrophils # 6.7 K/mcL (1.6-8.9); Red Blood Count 4.16 M/mcL (4.19-5.50); Red Cell Distribution Width 14.1 % (11.5-14.5); Segmented Neutrophils % 65.7 %; White Blood Count 10.2 K/mcL (4.3-11.1)
[2020-03-13 04:19] LABS: BUN/Creatinine Ratio 20 (6-26); Blood Urea Nitrogen 23 mg/dL (8-23); Calcium 8.8 mg/dL (8.6-10.3); Carbon Dioxide 25 mEq/L (23-29); Chloride 107 mEq/L (98-107); Glucose 128 mg/dL (70-105); Osmolality,Calculated 295 (280-300); Potassium 4.1 mEq/L (3.5-5.1); Sodium 140 mEq/L (136-145); eGFR For African Americans > 60 (> 60); eGFR For Non-African Americans > 60 (> 60)
[2020-03-13 04:52] LABS: Platelet Count 65 K/mcL (140-400)
[2020-03-13 05:02] LABS: Platelet Estimate Decreased (Normal)
[2020-03-13] MEDS: Apixaban 5 MG TABLET PO SCH ×2 (08:09→19:47)
[2020-03-13] MEDS: Aspirin 81 MG TAB.CHEW PO SCH (08:09)
[2020-03-13] MEDS: Insulin LISPRO 300 UNITS/3 ML VIAL SQ SCH ×4 (08:09→21:57)
[2020-03-13] MEDS: *HR* OxyCODONE/APAP 5/325 TABLET PO PRN (08:09)
[2020-03-13] MEDS: Chlorhexidine Rinse 15 ML MOUTHWASH MM SCH ×2 (08:09→19:47)
[2020-03-13] MEDS: Furosemide 20 MG/2 ML VIAL IVP SCH ×2 (09:27→19:46)
[2020-03-13] MEDS: Beer can PO SCH (16:52)
[2020-03-14 04:43] LABS: Hematocrit 39.1 % (37.5-50.1); Hemoglobin 12.3 g/dL (12.9-16.9); Immature Granulocytes % 0.3 % (0-4); Mean Corpuscular HGB Conc 31.5 g/dL (31.6-35.5); Monocytes % 17.5 %
[2020-03-14 04:45] LABS: Basophils % 0.3 %; Eosinophils # 0.1 K/mcL (0.0-0.6); Eosinophils % 0.9 %; Immature Platelets 13.6 % (1.1-6.1); Lymphocytes # 1.2 K/mcL (0.6-4.6); Lymphocytes % 12.5 %; Mean Corpuscular Hemoglobin 30.7 pg (28.0-33.3); Mean Corpuscular Volume 97.5 fL (83.0-100.0); Mean Platelet Volume 12.1 fL (9.4-12.4); Monocytes # 1.7 K/mcL (0.0-1.3); Neutrophils # 6.8 K/mcL (1.6-8.9); Red Blood Count 4.01 M/mcL (4.19-5.50); Segmented Neutrophils % 68.5 %; White Blood Count 9.9 K/mcL (4.3-11.1)
[2020-03-14 04:46] LABS: Platelet Count 71 K/mcL (140-400)
[2020-03-14 04:59] LABS: BUN/Creatinine Ratio 23 (6-26); Blood Urea Nitrogen 24 mg/dL (8-23); Calcium 8.9 mg/dL (8.6-10.3); Carbon Dioxide 30 mEq/L (23-29); Chloride 104 mEq/L (98-107); Glucose 122 mg/dL (70-105); Osmolality,Calculated 295 (280-300); Potassium 4.3 mEq/L (3.5-5.1); Sodium 140 mEq/L (136-145); eGFR For African Americans > 60 (> 60); eGFR For Non-African Americans > 60 (> 60)
[2020-03-14] MEDS: Insulin LISPRO 300 UNITS/3 ML VIAL SQ SCH ×4 (07:43→19:52)
[2020-03-14] MEDS: Chlorhexidine Rinse 15 ML MOUTHWASH MM SCH ×2 (07:44→19:49)
[2020-03-14] MEDS: Apixaban 5 MG TABLET PO SCH ×2 (07:44→19:50)
[2020-03-14] MEDS: Furosemide 20 MG/2 ML VIAL IVP SCH ×2 (07:44→19:50)
[2020-03-14] MEDS: Beer can PO SCH (17:44)
[2020-03-15] MEDS: Chlorhexidine Rinse 15 ML MOUTHWASH MM SCH ×2 (07:37→21:01)
[2020-03-15] MEDS: Furosemide 20 MG/2 ML VIAL IVP SCH ×2 (07:38→21:01)
[2020-03-15] MEDS: Aspirin 81 MG TAB.CHEW PO SCH (07:38)
[2020-03-15] MEDS: Apixaban 5 MG TABLET PO SCH ×2 (07:38→21:01)
[2020-03-15] MEDS: Insulin LISPRO 300 UNITS/3 ML VIAL SQ SCH ×4 (07:53→20:55)
[2020-03-15] MEDS: Beer can PO SCH (20:57)
[2020-03-16 01:08] LABS: Basophils % 0.6 %; Red Cell Distribution Width 13.6 % (11.5-14.5)
[2020-03-16 01:10] LABS: Basophils # 0.1 K/mcL (0.0-0.2); Eosinophils # 0.3 K/mcL (0.0-0.6); Eosinophils % 3.7 %; Hematocrit 38.3 % (37.5-50.1); Hemoglobin 12.4 g/dL (12.9-16.9); Immature Granulocytes % 0.3 % (0-4); Immature Platelets 8.4 % (1.1-6.1); Lymphocytes # 1.5 K/mcL (0.6-4.6); Lymphocytes % 17.8 %; Mean Corpuscular HGB Conc 32.4 g/dL (31.6-35.5); Mean Corpuscular Hemoglobin 30.8 pg (28.0-33.3); Mean Platelet Volume 11.4 fL (9.4-12.4); Monocytes # 1.5 K/mcL (0.0-1.3); Neutrophils # 5.2 K/mcL (1.6-8.9); Platelet Count 134 K/mcL (140-400); Red Blood Count 4.03 M/mcL (4.19-5.50); Segmented Neutrophils % 60.6 %; White Blood Count 8.6 K/mcL (4.3-11.1)
[2020-03-16 01:27] LABS: BUN/Creatinine Ratio 33 (6-26); Blood Urea Nitrogen 28 mg/dL (8-23); Calcium 8.7 mg/dL (8.6-10.3); Carbon Dioxide 27 mEq/L (23-29); Chloride 106 mEq/L (98-107); Glucose 124 mg/dL (70-105); Osmolality,Calculated 297 (280-300); Potassium 3.6 mEq/L (3.5-5.1); Sodium 140 mEq/L (136-145); eGFR For African Americans > 60 (> 60); eGFR For Non-African Americans > 60 (> 60)
[2020-03-16] MEDS: Insulin LISPRO 300 UNITS/3 ML VIAL SQ SCH ×4 (07:50→20:16)
[2020-03-16] MEDS: Chlorhexidine Rinse 15 ML MOUTHWASH MM SCH ×2 (08:05→20:26)
[2020-03-16] MEDS: Furosemide 20 MG/2 ML VIAL IVP SCH (08:05)
[2020-03-16] MEDS: Aspirin 81 MG TAB.CHEW PO SCH (08:05)
[2020-03-16] MEDS: Apixaban 5 MG TABLET PO SCH ×2 (08:05→20:26)
[2020-03-16] MEDS: polyethylene glycoL 3350 17 GM POWD.PACK PO SCH (09:44)
[2020-03-16] MEDS: Beer can PO SCH (20:22)
[2020-03-17] MEDS: Insulin LISPRO 300 UNITS/3 ML VIAL SQ SCH ×3 (08:36→16:33)
[2020-03-17] MEDS: Chlorhexidine Rinse 15 ML MOUTHWASH MM SCH (08:36)
[2020-03-17] MEDS: Aspirin 81 MG TAB.CHEW PO SCH (08:37)
[2020-03-17] MEDS: polyethylene glycoL 3350 17 GM POWD.PACK PO SCH (08:38)
[2020-03-17] MEDS: Apixaban 5 MG TABLET PO SCH (08:38)
[2020-03-17 15:24] VITALS: BP 129/69
[2020-03-17] MEDS: Beer can PO SCH (16:36)
[2020-03-17 16:53] LABS: Adenovirus Not Detected (Not Detect); Bordetella Pertussis Not Detected (Not Detect); Chlamydophila pneumoniae Not Detected (Not Detect); Coronavirus 229E Not Detected (Not Detect); Coronavirus HKU1 Not Detected (Not Detect); Coronavirus NL63 Not Detected (Not Detect); Coronavirus OC43 Not Detected (Not Detect); Human Metapneumovirus Not Detected (Not Detect); Human Rhinovirus/Enterovirus Not Detected (Not Detect); Influenza A Subtype 2009 H1 Not Detected (Not Detect); Influenza B Not Detected (Not Detect); Mycoplasma pneumoniae Not Detected (Not Detect); Parainfluenza Virus 1 Not Detected (Not Detect); Parainfluenza Virus 2 Not Detected (Not Detect); Parainfluenza Virus 3 Not Detected (Not Detect); Parainfluenza Virus 4 Not Detected (Not Detect); Respiratory Syncytial Virus Not Detected (Not Detect); SARS-CoV-2 Not Detected (Not Detect)
== END 2020-03-17 17:30 | DRG 234 ==
LOC: INVDIALAB 09:14 → ICNU 16:03 → 2NNU 03-13 10:55
PROVIDERS: ADMIT Thoracic Surgery (Cardiothoracic Vascular Surgery); ATTEND Thoracic Surgery (Cardiothoracic Vascular Surgery)

== ENCOUNTER 2021-12-08 12:39 | Inpatient (IN) ==
[2021-12-08 13:16] LABS: Hemoglobin 14.3 g/dL (12.9-16.9); Immature Granulocytes % 0.2 % (0-4)
[2021-12-08 13:18] LABS: Basophils % 0.6 %; Eosinophils % 0.5 %; Hematocrit 43.8 % (37.5-50.1); Immature Platelets 6.4 % (1.1-6.1); Mean Corpuscular HGB Conc 32.6 g/dL (31.6-35.5); Mean Corpuscular Hemoglobin 31.3 pg (28.0-33.3); Mean Corpuscular Volume 95.8 fL (83.0-100.0); Mean Platelet Volume 11.3 fL (9.4-12.4); Monocytes # 0.8 K/mcL (0.0-1.3); Monocytes % 13.4 %; Platelet Count 130 K/mcL (140-400); Red Blood Count 4.57 M/mcL (4.19-5.50); Segmented Neutrophils % 69.3 %; White Blood Count 6.3 K/mcL (4.3-11.1)
[2021-12-08 13:27] LABS: Neutrophils # 4.4 K/mcL (1.6-8.9)
[2021-12-08 13:35] LABS: Alanine Aminotransferase 9 Units/L (7-52); Albumin/Globulin Ratio 1.7 (1.1-2.2); Alkaline Phosphatase 81 Units/L (34-104); Aspartate Amino Transferase 22 Units/L (13-39); BUN/Creatinine Ratio 17 (6-26); Blood Urea Nitrogen 22 mg/dL (8-23); Calcium 9.3 mg/dL (8.6-10.3); Carbon Dioxide 29 mEq/L (23-29); Chloride 106 mEq/L (98-107); Creatine Kinase 69 Units/L (30-223); Globulin 2.4 g/dL (2.4-3.5); Glucose 161 mg/dL (70-105); Magnesium 1.9 mg/dL (1.6-2.6); Osmolality,Calculated 299 (280-300); Potassium 3.9 mEq/L (3.5-5.1); Sodium 141 mEq/L (136-145); Total Protein 6.4 g/dL (6.4-8.9); Troponin I < 0.03 ng/mL (< 0.04); eGFR For African Americans > 60 (> 60); eGFR For Non-African Americans 53 (> 60)
[2021-12-08 14:11] LABS: Bilirubin,Urine Negative (Negative); Blood,Urine Negative (Negative); Clarity,Urine Clear (Clear); Color,Urine Light-Yellow (Yellow); Glucose,Urine (UA) Normal (Normal); Ketones,Urine Negative (Negative); Leukocyte Esterase,Urine Negative (Negative); Nitrite,Urine Negative (Negative); Protein,Urine Negative (Neg-Trace); Specific Gravity,Urine 1.016 (1.010-1.025); Urobilinogen,Urine Normal (Normal)
[2021-12-08] MEDS ORDERED: Acetaminophen 325 MG TABLET PO PRN (15:10)
[2021-12-08] MEDS ORDERED: Melatonin 3 MG TABLET PO PRN (15:10)
[2021-12-08] MEDS ORDERED: Naloxone 0.4 MG/ML INJ IVP PRN (15:10)
[2021-12-08] MEDS ORDERED: Ondansetron 4 MG/2 ML VIAL IVP PRN (15:10)
[2021-12-08] MEDS ORDERED: Mag Hydrox/Al Hydrox/Simeth 30 ML UDC PO PRN (15:10)
[2021-12-08] MEDS ORDERED: Aspirin Enteric Coated 325 MG Tablet PO ONE (15:12)
[2021-12-08] MEDS ORDERED: *HR* Labetalol 20 MG/4 ML SYRINGE IVP PRN (15:31)
[2021-12-08] MEDS: Carbidopa/Levodopa 25/100 TABLET PO SCH ×2 (18:46→20:01)
[2021-12-08] MEDS: Melatonin 3 MG TABLET PO SCH (20:01)
[2021-12-09 03:22] LABS: INR 1.2; Prothrombin Time 13.4 Seconds (9.4-12.1)
[2021-12-09 03:36] LABS: BUN/Creatinine Ratio 18 (6-26); Blood Urea Nitrogen 21 mg/dL (8-23); Calcium 8.9 mg/dL (8.6-10.3); Carbon Dioxide 24 mEq/L (23-29); Chloride 107 mEq/L (98-107); Chol/HDL Ratio 2.6 (0-4.9); Cholesterol 106 mg/dL (< 200); Glucose 114 mg/dL (70-105); HDL Cholesterol 41 mg/dL (40-59); LDL Cholesterol,Calculated 48 mg/dL (< 100); Osmolality,Calculated 292 (280-300); Sodium 139 mEq/L (136-145); Triglycerides 86 mg/dL (< 150); eGFR For African Americans > 60 (> 60); eGFR For Non-African Americans > 60 (> 60)
[2021-12-09 04:06] LABS: Estimated Average Glucose 126 mg/dl
[2021-12-09 04:30] LABS: Folate > 22.3 ng/mL (3.0-16.0); Vitamin B12 397 pg/mL (250-1100)
[2021-12-09] MEDS: Aspirin Enteric Coated 81 MG Tablet PO SCH (08:38)
[2021-12-09] MEDS: Carbidopa/Levodopa 25/100 TABLET PO SCH ×4 (08:38→19:38)
[2021-12-09] MEDS: Isosorbide MONOnitrate (24 HR) 30 MG TAB.ER.24H PO SCH (08:38)
[2021-12-09] MEDS: Metoprolol XL (24 HR) Succ 50 MG TAB.ER.24H PO SCH (08:38)
[2021-12-09] MEDS: Melatonin 3 MG TABLET PO SCH (19:38)
[2021-12-10] MEDS: Isosorbide MONOnitrate (24 HR) 30 MG TAB.ER.24H PO SCH (08:24)
[2021-12-10] MEDS: Aspirin Enteric Coated 81 MG Tablet PO SCH (08:24)
[2021-12-10] MEDS: Furosemide 20 MG TABLET PO SCH (08:24)
[2021-12-10] MEDS: Carbidopa/Levodopa 25/100 TABLET PO SCH ×4 (08:24→21:28)
[2021-12-10] MEDS: Metoprolol XL (24 HR) Succ 50 MG TAB.ER.24H PO SCH (08:24)
[2021-12-10] MEDS: Melatonin 3 MG TABLET PO SCH (21:28)
[2021-12-11] MEDS: Furosemide 20 MG TABLET PO SCH (09:04)
[2021-12-11] MEDS: Aspirin Enteric Coated 81 MG Tablet PO SCH (09:04)
[2021-12-11] MEDS: Metoprolol XL (24 HR) Succ 50 MG TAB.ER.24H PO SCH (09:04)
[2021-12-11] MEDS: Carbidopa/Levodopa 25/100 TABLET PO SCH ×4 (09:04→20:41)
[2021-12-11] MEDS ORDERED: Perflutren Lipid Microsphere 1.3 ML in 0.9 % Sodium Chloride 8.7 ML IVP PRN (10:50)
[2021-12-11] MEDS ORDERED: 0.9 % Sodium Chloride 1,000 ML IVC SCH (11:00)
[2021-12-11] MEDS ORDERED: Iopamidol - 370 500 ML MLS IVP ONE (15:23)
[2021-12-11] MEDS: Melatonin 3 MG TABLET PO SCH (20:41)
[2021-12-12 05:58] LABS: BUN/Creatinine Ratio 13 (6-26); Blood Urea Nitrogen 14 mg/dL (8-23); Calcium 8.9 mg/dL (8.6-10.3); Carbon Dioxide 31 mEq/L (23-29); Chloride 107 mEq/L (98-107); Glucose 99 mg/dL (70-105); Osmolality,Calculated 291 (280-300); Potassium 4.3 mEq/L (3.5-5.1); Sodium 140 mEq/L (136-145); eGFR For African Americans > 60 (> 60); eGFR For Non-African Americans > 60 (> 60)
[2021-12-12] MEDS: Aspirin Enteric Coated 81 MG Tablet PO SCH (09:58)
[2021-12-12] MEDS: Metoprolol XL (24 HR) Succ 50 MG TAB.ER.24H PO SCH (09:58)
[2021-12-12] MEDS: Carbidopa/Levodopa 25/100 TABLET PO SCH ×3 (09:59→16:14)
[2021-12-12] MEDS: Isosorbide MONOnitrate (24 HR) 30 MG TAB.ER.24H PO SCH (09:59)
[2021-12-12] MEDS: Furosemide 20 MG TABLET PO SCH (09:59)
[2021-12-12 15:02] VITALS: BP 100/68; PULSE 64; TEMP 97.5; O2SAT 94
[2021-12-12 15:36] LABS: Influenza A PCR Negative (Negative); Influenza B PCR Negative (Negative); Resp. Syncytial Virus PCR Negative (Negative)
[2021-12-12 15:38] LABS: SARS-CoV-2 by PCR (In House) Negative (Negative)
== END 2021-12-12 19:02 | disposition other institution (70) | DRG 69 ==
LOC: 3ANU 12:39 → EMEROOARM 12:39 → SUATTDRO 14:21 → 3ANU 15:05
PROVIDERS: ADMIT Internal Medicine; ATTEND Internal Medicine